=== PATIENT | male | born 1995 ===

== ENCOUNTER 2017-09-09 17:20 | Emergency (ER) | payer MEDICAID ==
[2017-09-09 17:29] VITALS: BP 141/95; PULSE 91; RESP 20; TEMP 98.5; O2SAT 97
--- NOTE | 2017-09-09 18:01 | ED PDOC ---
HPI: SOB/CHF/COPD Time Seen by Provider: 09/09/17 17:39 Chief Complaint (Nursing): Cough, Cold, Congestion Chief Complaint (Provider): Cough and shortness of breath History Per: Patient History/Exam Limitations: no limitations Onset/Duration Of Symptoms: Hrs Additional Complaint(s): Patient is a 22 y/o male with a past medical history of asthma brought to the emergency department by EMS for a cough since this morning and shortness of breath. Notes that the cough began after going to the gym this morning and he started feeling short of breath while walking outside to the [employer]. Denies taking any medication for relief or using an inhaler. States that he has not had an asthmatic attack in a while. Denies fever, chest pain, recent travel, or any other complaints. PCP: Dr. Alexsander Mane Past Medical History Reviewed: Historical Data, Nursing Documentation, Vital Signs Vital Signs: Last Vital Signs Temp 98.5 F 09/09/17 17:27 Pulse 91 H 09/09/17 17:27 Resp 20 09/09/17 17:27 BP 141/95 H 09/09/17 17:27 Pulse Ox 97 09/09/17 21:36 - Medical History PMH: Asthma - Family History Family History: States: No Known Family Hx - Immunization History Hx Tetanus Toxoid Vaccination: Yes - Home Medications Home Medications: Ambulatory Orders Medication Instructions Recorded Albuterol 0.083% [Albuterol 3 ml IH Q4 #100 neb 09/09/17 Sulfate 3 Ml] Albuterol HFA [Ventolin HFA 90 2 puff IH [id number] #1 puff 09/09/17 mcg/actuation (8 g)] Nebulizer [Aeroeclipse II] 1 each MC DAILY PRN #1 each 09/09/17 predniSONE [predniSONE Tab] 40 mg PO DAILY #8 tab 09/09/17 - Allergies Allergies/Adverse Reactions: Allergies Allergy/AdvReac Type Severity Reaction Status Date / Time No Known Allergies Allergy Verified 09/24/16 20:14 Review of Systems ROS Statement: Except As Marked, All Systems Reviewed And Found Negative Constitutional: Negative for: Fever Cardiovascular: Negative for: Chest Pain Respiratory: Positive for: Cough, Shortness of Breath Physical Exam - Reviewed Nursing Documentation Reviewed: Yes Vital Signs Reviewed: Yes - Physical Exam Appears: Positive for: Well, Non-toxic, No Acute Distress Head Exam: Positive for: ATRAUMATIC, NORMAL INSPECTION, NORMOCEPHALIC Skin: Positive for: Normal Color, Warm, Dry Eye Exam: Positive for: Normal appearance ENT: Positive for: Normal ENT Inspection, Pharynx Is (normal), TM Is/Are (normal ). Negative for: Sinus Pain/Drainage, Nasal Congestion, Pharyngeal Erythema, Tonsillar Exudate, Tonsillar Swelling Neck: Positive for: Normal, Painless ROM. Negative for: Decreased ROM Cardiovascular/Chest: Positive for: Regular Rate, Rhythm. Negative for: Murmur Respiratory: Positive for: Wheezing (expiratory bilaterally), Other (speaking in full sentences). Negative for: Normal Breath Sounds, Accessory Muscle Use, Respiratory Distress Extremity: Positive for: Normal ROM. Negative for: Pedal Edema Neurologic/Psych: Positive for: Alert, Oriented (x3) - ECG O2 Sat by Pulse Oximetry: 97 (RA) Pulse Ox Interpretation: Normal Medical Decision Making Medical Decision Making: Time: 18:09 Initial impression: cough and shortness of breath Initial plan: Albuterol 3 mL IH Prednisone 60 mg PO Nebulizer treatment Peak flow assessment pre and post treatment Reevaluation On reevaluation, the patient is resting comfortably in bed in no acute distress. Patient is smiling, speaking in full sentences, breathing is easy and unlabored. On exam, lungs are clear to auscultation, no wheezing, breath sounds are equal bilaterally. Diagnosis of asthma exacerbation discussed with the patient in great detail. Patient instructed to follow up with primary care physician in 1-2 days without fail. Advised to take medication as prescribed. Return to the emergency room at any time for any new or worsening symptoms. Patient states he fully agrees with and understands discharge instructions. States that he agrees with the plan and disposition. Verbalized and repeated discharge instructions and plan. I have given the patient opportunity to ask any additional questions. ~ Scribe Attestation: Documented by Arabella Moreira, acting as a scribe for CHERRI Berger. Provider Scribe Attestation: All medical record entries made by the Scribe were at my direction and personally dictated by me. I have reviewed the chart and agree that the record accurately reflects my personal performance of the history, physical exam, medical decision making, and the department course for this patient. I have also personally directed, reviewed, and agree with the discharge instructions and disposition. Disposition - Clinical Impression Clinical Impression: Asthma - Patient ED Disposition Is Patient to be Admitted: No Counseled Patient/Family Regarding: Diagnosis, Need For Followup, Rx Given - Disposition Referrals: [facility] [Outside] Disposition: Routine/Home Disposition Time: 19:30 Condition: IMPROVED Prescriptions: Albuterol HFA [Ventolin HFA 90 mcg/actuation (8 g)] 2 puff IH [id number] #1 puff Albuterol 0.083% [Albuterol Sulfate 3 Ml] 3 ml IH Q4 #100 neb Nebulizer [Aeroeclipse II] 1 each MC DAILY PRN #1 each PRN Reason: Wheezing predniSONE [predniSONE Tab] 40 mg PO DAILY #8 tab Instructions: Asthma (ED) Forms: [employer] (Upper Sorbian), [facility] ED School/Work Excuse Print Language: CYMRAES - PA / ROOM WORKER / Resident Statement MD/DO has reviewed & agrees with the documentation as recorded.
[2017-09-09] MEDS ORDERED: Albuterol-Ipratrop 3 mg / 0.5 (3 ml) UD ONE (18:13)
[2017-09-09] MEDS: Albuterol-Ipratrop 3 mg / 0.5 (3 ml) UD IH SCH ×2 (18:18→18:59)
== END 2017-09-09 19:59 | disposition home or self-care (01) ==
LOC: H.ER 17:20
DX: J45.901 Unspecified asthma with (acute) exacerbation (principal)